=== PATIENT | male | born 1995 | race Caucasian/White ===

== ENCOUNTER 2020-05-13 16:32 | Emergency (ER) | payer SELFPAY ==
[~2020-05-13] VITALS: Ht 172.7 cm; Wt 82.0 kg
[2020-05-13 23:58] VITALS: BP 107/59
== END 2020-05-14 | disposition home or self-care (01) ==
LOC: ER 16:32
DX: F10.129 Alcohol abuse with intoxication, unspecified (principal); Y90.0 Blood alcohol level of less than 20 mg/100 ml
CPT/HCPCS: 93005; 99283